=== PATIENT | female | born 1940 | race African-American/Black ===

== ENCOUNTER 2018-12-20 22:06 | Emergency (ER) | payer MEDICARE, OTHER ==
[~2018-12-20] VITALS: Ht 162.6 cm; Wt 70.3 kg
[2018-12-20] MEDS ORDERED: BENICAR HCT 201 EACH ORAL (22:18)
[2018-12-20] MEDS ORDERED: ATENOLOL25 MG ORAL (22:18)
--- NOTE | 2018-12-20 22:29 | Emergency Room Report ---
History of Present Illness General Chief Complaint: General Complaint Source: Patient Present Illness HPI This is a 78-year-old female with history of high blood pressure. She presents with chief complaint of dizziness. Onset tonight. She said that when she lay down thing seemed to be spinning. Richardson nauseous but no vomiting. That is sitting up. No diarrhea. Richardson gassy. Symptom in the past. Denies any chest pain or focal deficit. Denies any slurred speech. No other complaint. Allergies: Coded Allergies: No Known Allergies (Verified , 12/20/18) Uncoded Allergies: MOST FOODS, ONLY EATS SALMON,CORN,VEGETABLE (Allergy, Unknown, 06/21/11) Patient History Past Medical History: see triage record, old chart reviewed, HTN Past Surgical History: other Pertinent Family History: none Social History: Denies: smoking Now: No Immunizations: other Reviewed Nursing Documentation: PMH: Agreed; PSxH: Agreed Nursing Documentation-PMH Hx Hypertension: Yes Review of Systems Eye: Denies: eye pain, blurred vision ENT: Denies: ear pain, nose congestion, throat swelling Respiratory: Denies: cough, shortness of breath Cardiovascular: Denies: chest pain, palpitations Gastrointestinal: Denies: abdominal pain, diarrhea, nausea, vomiting Musculoskeletal: Denies: back pain, joint pain Skin: Denies: rash Neurological: Reports: dizziness; Denies: headache, numbness Endocrine: Denies: increased thirst, increased urine Hematologic/Lymphatic: Denies: easy bruising All Other Systems: negative except mentioned in HPI Physical Exam Vital Signs Date Time Temp Pulse Resp B/P (MAP) Pulse Ox O2 Delivery O2 Flow Rate FiO2 12/20/18 22:10 98.1 66 16 184/80 99 Room Air vitals with high blood pressure Sp02 EP Interpretation: reviewed, normal General Appearance: well appearing, no apparent distress, alert Head: normocephalic, atraumatic Eyes: bilateral eye PERRL, bilateral eye EOMI ENT: hearing grossly normal, normal pharynx Neck: full range of motion, supple, no meningismus Respiratory: chest non-tender, lungs clear, normal breath sounds Cardiovascular #1: regular rate, rhythm, systolic murmur Gastrointestinal: normal bowel sounds, non tender, no mass, no organomegaly, no bruit, non-distended Musculoskeletal: back normal, gait/station normal, normal range of motion Psychiatric: mood/affect normal Skin: warm/dry Medical Decision Making Diagnostic Impression: Primary Impression: Vertigo ER Course Patient with dizziness and vertigo symptoms. No evidence of any TIA or CVA or intracranial pathology. Better after Ativan. Will discharge home. Last Vital Signs Date Time Temp Pulse Resp B/P (MAP) Pulse Ox O2 Delivery O2 Flow Rate FiO2 12/20/18 22:10 98.1 66 16 184/80 99 Room Air Status: improved Disposition: HOME, SELF-CARE Condition: Stable Scripts Meclizine Hcl* (MECLIZINE*) 25 Mg Tablet 25 MG ORAL THREE TIMES A DAY, #30 TAB Prov: Jamal Guerra MD 12/20/18 Ondansetron (Zofran) 4 Mg Tablet 4 MG ORAL Q6H PRN for Nausea & Vomiting, #10 TAB 0 Refills Prov: Jamal Guerra MD 12/20/18 Additional Instructions: Follow-up with your Dr. in 2-3 days of not better. Return if symptom worsen. Jamal Guerra MD Dec 20, 2018 22:29
[2018-12-20 22:30] VITALS: BP 118/62
[2018-12-20] MEDS ORDERED: LORazepam Inj 2mg/ml 1ml IV ONE (22:30)
[2018-12-20 22:53] LABS: APPEARANCE,URINE CLEAR; BILIRUBIN, URINE NEGATIVE (NEGATIVE); GLUCOSE, URINE (UA) NEGATIVE (NEGATIVE); KETONES,URINE NEGATIVE (NEGATIVE); LEUKOCYTE ESTERASE ,URINE 1+ (NEGATIVE); NITRITE,URINE NEGATIVE (NEGATIVE); PH,URINE 6 (4.5-8.0); PROTEIN,URINE NEGATIVE (NEGATIVE); UROBILINOGEN,URINE NORMAL MG/DL (0.0-1.0)
[2018-12-20 22:57] LABS: EOSINOPHILS % (AUTO) 2.6 % (0.0-3.0); HEMATOCRIT 32.8 % (37.0-47.0); HEMOGLOBIN 10.8 G/DL (12.0-16.0); LYMPHOCYTES % (AUTO) 32.7 % (20.0-45.0); MEAN CORPUSCULAR VOLUME 98 FL (80-99); MONOCYTES % (AUTO) 8.3 % (1.0-10.0); NEUTROPHILS % (AUTO) 55.4 % (45.0-75.0); PLATELET COUNT 154 K/UL (150-450); RED BLOOD COUNT 3.33 M/UL (4.20-5.40); RED CELL DISTRIBUTION WIDTH 12.5 % (11.6-14.8); WHITE BLOOD COUNT 4.5 K/UL (4.8-10.8)
[2018-12-20 22:59] LABS: COLOR,URINE YELLOW
[2018-12-20 23:14] LABS: ANION GAP 8 mmol/L (5-15); BLOOD UREA NITROGEN 16 mg/dL (7-18); CALCIUM 9.6 MG/DL (8.5-10.1); CARBON DIOXIDE 29 MMOL/L (21-32); CHLORIDE 100 MMOL/L (98-107); CREATININE 0.8 MG/DL (0.55-1.30); POTASSIUM 3.7 MMOL/L (3.5-5.1); SODIUM 137 MMOL/L (136-145)
[2018-12-20] MEDS ORDERED: MECLIZINE HCL25 MG ORAL (23:23)
[2018-12-20] MEDS ORDERED: ZOFRAN4 MG ORAL (23:23)
[2018-12-20 23:27] VITALS: BP 113/43
== END 2018-12-20 23:50 | disposition home or self-care (01) ==
LOC: EMR 22:28
DX: R42 Dizziness and giddiness (principal); I10 Essential (primary) hypertension
CPT/HCPCS: 36415; 80048; 81001; 84484; 85025; 96361; 96374; 96375; 99284; J2405

== ENCOUNTER 2019-01-21 09:03 | Outpatient (CLI) | payer MEDICARE, OTHER ==
[~2019-01-21] VITALS: Ht 162.6 cm; Wt 68.0 kg
[~2019-01-21 09:03] MED LIST: ATENOLOL25 MG ORAL; BENICAR HCT 201 EACH ORAL; MECLIZINE HCL25 MG ORAL; ZOFRAN4 MG ORAL
[2019-01-21 12:03] VITALS: BP 130/70
--- NOTE | 2019-01-22 00:15 | Consultation ---
DATE OF CONSULTATION: 01/21/2019 NOTE: "POOR AUDIO QUALITY" GASTROENTEROLOGY CONSULTATION CONSULTING PHYSICIAN: Jesus Hercules M.D. CHIEF COMPLAINT: Abdominal pain and bloating. HISTORY OF PRESENT ILLNESS: This is a very pleasant 78-year-old female known to me from prior visits. We have not seen her for over five or six years. She has history of 4 colonic polyps. She was offered to have another colonoscopy 3 years after the last colonoscopy, which she never showed up and she refused. She is here today because she has complained of gas and bloating. Apparently, the bloating was severe enough for her to go to the emergency room early beginning of this month and she was sent home without any new medication. Denies any nausea, vomiting, dysphagia, or odynophagia. Denies any melena or hematochezia. As I mentioned, she had a workup in the past including blood test, which was negative at [facility]. Her last CT of the abdomen and pelvis was in 2011, which showed 3 subcentimeter hypo-attenuated lesion in the right and left lobe of the liver and mild wall thickening of gastric wall. Her endoscopy and colonoscopy was done in July 2011. She had antral gastritis, four colonic polyps, internal hemorrhoids, and sigmoid diverticulosis. PAST MEDICAL HISTORY: Significant for diverticulosis, internal hemorrhoids, H. 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 MEDICATIONS: Please see medication reconciliation list. ALLERGIES: No known drug allergies. SOCIAL HISTORY: The patient denies any tobacco, alcohol, or IV drug abuse. FAMILY HISTORY: No family history of GI malignancies. REVIEW OF SYSTEMS: A 10-point review of systems was performed and pertinent positives in HPI. PHYSICAL EXAMINATION: VITAL SIGNS: Temperature 99.2, pulse 69, respirations 20, and blood pressure 130/70. HEENT: Normocephalic and atraumatic. Sclerae anicteric. NECK: Supple. No evidence of lymphadenopathy. CARDIOVASCULAR: Regular rate and rhythm. Plus S1 and S2. No obvious murmur. LUNGS: Clear to auscultation bilaterally. ABDOMEN: Positive bowel sounds. Soft and nontender. No rebound. No guarding. No peritoneal sign. EXTREMITIES: No cyanosis, no clubbing, no edema. ASSESSMENT AND PLAN: This is a 78-year-old female with history of anemia, constipation, H. pylori-negative gastritis, and four colonic polyps in 2010. She was offered to have another colonoscopy. She absolutely refuses. I explained the risks that she is taking by not having another colonoscopy given history of polyps and increased risk of malignancy for colonoscopy. I informed her that if she is okay, she can have it, but she refuses at this time. The patient was given a prescription for VSL#3 to try for 3 weeks. Also, she was given a prescription for 3 times a day for 14 days. The patient was instructed to come back in the office in 3 weeks to see if her symptoms are better or not. If she is still having a lot of gas and bloating, we will consider adding Creon or Zantac for trial and we are going to reinforce and articulate again in the next visit for colonoscopy. Jesus Hercules M.D. DR: RULA JOB#: [id number] CC:
== END 2019-01-21 11:00 | disposition home or self-care (01) ==
LOC: PAN 09:03
DX: R10.9 Unspecified abdominal pain (principal); R14.0 Abdominal distension (gaseous); Z86.010 Personal history of colon polyps; K57.90 Diverticulosis of intestine, part unspecified, without perforation or abscess without bleeding; I10 Essential (primary) hypertension; K21.9 Gastro-esophageal reflux disease without esophagitis
CPT/HCPCS: 99212

== ENCOUNTER 2019-02-11 09:03 | Outpatient (CLI) | payer MEDICARE, OTHER ==
--- NOTE | 2019-02-11 09:48 | General Progress Note ---
Assessment/Plan Problem List: (1) Diverticulosis ICD Codes: K57.90 - Diverticulosis of intestine, part unspecified, without perforation or abscess without bleeding SNOMED: 419148953 (2) Hemorrhoids ICD Codes: K64.9 - Unspecified hemorrhoids SNOMED: 87736053 (3) SIBO (4) Colon polyp ICD Codes: K63.5 - Polyp of colon SNOMED: 86793539 Assessment/Plan: some response to Xifaxan on probiotics refuses Creon refuses repeat colonoscopy RTC 3 months Subjective ROS Limited/Unobtainable: Yes Allergies: Coded Allergies: No Known Allergies (Verified , 12/20/18) Uncoded Allergies: MOST FOODS, ONLY EATS SALMON,CORN,VEGETABLE (Allergy, Unknown, 06/21/11) Objective General Appearance: alert EENT: normal ENT inspection Neck: supple Cardiovascular: normal rate Respiratory/Chest: decreased breath sounds Abdomen: normal bowel sounds, non tender, soft Extremities: non-tender Jesus Hercules MD February 11, 2019 09:48
== END 2019-02-11 14:43 | disposition home or self-care (01) ==
LOC: PAN 09:03
DX: K57.90 Diverticulosis of intestine, part unspecified, without perforation or abscess without bleeding (principal); K64.9 Unspecified hemorrhoids; K56.609 Unspecified intestinal obstruction, unspecified as to partial versus complete obstruction; K63.5 Polyp of colon

== ENCOUNTER 2019-06-19 05:43 | Emergency (ER) | payer MEDICARE, OTHER ==
[~2019-06-19] VITALS: Ht 162.6 cm; Wt 68.0 kg
[2019-06-19 05:58] VITALS: BP 145/75
--- NOTE | 2019-06-19 05:58 | NUR ---
ED Nurse Note: Patient walked in to ER due to lower abdominal pain, vomiting and diarrhea since 11pm last night. Has hx of HTN and hyperacidity. Alert and oriented, verbally responsive. Breathing even and unlabored. No SOB. Able to walk with steady gait. Afebrile. VSS.
[2019-06-19] MEDS ORDERED: Metoclopramide 10mg/2ml Inj IVP ONE (06:15)
[2019-06-19] MEDS ORDERED: Mylanta II UD 30ml ORAL ONE (06:15)
[2019-06-19] MEDS ORDERED: Lidocaine 2% Visc 15ml soln ORAL ONE (06:15)
[2019-06-19] MEDS ORDERED: Dicyclomine HCl 10mg/5ml oral soln ORAL ONE (06:15)
[2019-06-19] MEDS ORDERED: Omnipaque-300 100ml vial INJ PRN (06:15)
--- NOTE | 2019-06-19 06:25 | Emergency Room Report ---
History of Present Illness General Chief Complaint: Abdominal Pain Source: Patient (Johan Sparrow MD) Present Illness HPI 78-year-old female history of gastritis presents with lower abdominal pain crampy in nature started at 11 PM, no aggravating relieving factors followed by 8 episodes of watery diarrhea, no blood, severity moderate, intermittent, patient denies any fevers chills, patient feels a little dehydrated and lightheaded, no chest pain or shortness of breath, no dyspnea on exertion patient presents for evaluation. (Johan Sparrow MD) Allergies: Coded Allergies: No Known Allergies (Verified , 12/20/18) Uncoded Allergies: MOST FOODS, ONLY EATS SALMON,CORN,VEGETABLE (Allergy, Unknown, 06/21/11) Patient History Past Medical History: see triage record Reviewed Nursing Documentation: PMH: Agreed; PSxH: Agreed (Johan Sparrow MD) Nursing Documentation-PMH Hx Cardiac Problems: Yes Hx Hypertension: Yes Hx Cancer: No Hx Gastrointestinal Problems: Yes Hx Neurological Problems: No (Johan Sparrow MD) Review of Systems All Other Systems: negative except mentioned in HPI (Johan Sparrow MD) Physical Exam Vital Signs Date Time Temp Pulse Resp B/P (MAP) Pulse Ox O2 Delivery O2 Flow Rate FiO2 06/19/19 05:52 97.5 80 16 145/75 (98) 96 Room Air Sp02 EP Interpretation: reviewed, normal General Appearance: well appearing, no apparent distress, alert Head: normocephalic, atraumatic Eyes: bilateral eye PERRL, bilateral eye EOMI ENT: uvula midline, moist mucus membranes Neck: supple, thyroid normal, supple/symm/no masses Respiratory: lungs clear, no respiratory distress, no retraction, no accessory muscle use Cardiovascular #1: normal peripheral pulses, regular rate, rhythm, no edema, no gallop, no murmur Gastrointestinal: non tender, soft, no guarding, no rebound Musculoskeletal: normal inspection Neurologic: alert, oriented x3 Psychiatric: mood/affect normal Skin: no rash, warm/dry (Johan Sparrow MD) Medical Decision Making Diagnostic Impression: Primary Impression: Acute diarrhea Additional Impression: Abdominal pain Qualified Codes: R10.30 - Lower abdominal pain, unspecified ER Course 88-year-old female presents with lower abdominal pain differential diagnosis includes gastritis, diverticulitis, appendicitis, infectious diarrhea Patient with benign exam, no rebound no guarding low suspicion for acute abdomen Will rehydrate patient, will provide symptomatic treatment will evaluate labs for dehydration and electrolyte abnormalities CT scan to evaluate for any acute intra-abdominal pathology (Johan Sparrow MD) ER Course CT of abdomen pelvis read by radiology showed mild fluid-filled distended small bowel loops with liquefied stool in the colon. Cystic densities in the liver. Heart is enlarged. Suspected enteritis. Laboratory testing showed normal white blood count as well as normal electrolyte panel. Patient appears stable for close outpatient follow up with primary care physician. She was advised to return for any worsening, bloody stools or other concerns. She was able to tolerate po fluids in the emergency department without vomiting. She was advised to follow up with her GI specialist Dr. Hercules. in 1-2 days. Labs Test 06/19/19 06:20 06/19/19 07:20 White Blood Count 6.1 K/UL (4.8-10.8) Red Blood Count 3.89 M/UL (4.20-5.40) Hemoglobin 12.7 G/DL (12.0-16.0) Hematocrit 39.4 % (37.0-47.0) Mean Corpuscular Volume 101 FL (80-99) Mean Corpuscular Hemoglobin 32.6 PG (27.0-31.0) Mean Corpuscular Hemoglobin Concent 32.2 G/DL (32.0-36.0) Red Cell Distribution Width 12.7 % (11.6-14.8) Platelet Count 158 K/UL (150-450) Mean Platelet Volume 7.8 FL (6.5-10.1) Neutrophils (%) (Auto) % (45.0-75.0) Lymphocytes (%) (Auto) % (20.0-45.0) Monocytes (%) (Auto) % (1.0-10.0) Eosinophils (%) (Auto) % (0.0-3.0) Basophils (%) (Auto) % (0.0-2.0) Differential Total Cells Counted 100 Neutrophils % (Manual) 84 % (45-75) Lymphocytes % (Manual) 7 % (20-45) Monocytes % (Manual) 4 % (1-10) Eosinophils % (Manual) 2 % (0-3) Basophils % (Manual) 3 % (0-2) Band Neutrophils 0 % (0-8) Platelet Estimate Adequate Platelet Morphology Normal Red Blood Cell Morphology Macrocytosis 1+ Prothrombin Time 10.4 SEC (9.30-11.50) Prothromb Time International Ratio 1.0 (0.9-1.1) Activated Partial Thromboplast Time 25 SEC (23-33) Urine Color Yellow Urine Appearance Clear Urine pH 5 (4.5-8.0) Urine Specific [place] 1.025 (1.005-1.035) Urine Protein Negative (NEGATIVE) Urine Glucose (UA) Negative (NEGATIVE) Urine Ketones 1+ (NEGATIVE) Urine Blood 1+ (NEGATIVE) Urine Nitrite Negative (NEGATIVE) Urine Bilirubin Negative (NEGATIVE) Urine Urobilinogen Normal MG/DL (0.0-1.0) Urine Leukocyte Esterase Negative (NEGATIVE) Urine RBC 0-2 /HPF (0 - 2) Urine WBC 0 /HPF (0 - 2) Urine Squamous Epithelial Cells Occasional /LPF Urine Amorphous Sediment Few /LPF (NONE) Urine Bacteria Few /HPF (NONE) Urine Mucus Moderate /LPF (NONE/OCC) Troponin I 0.000 ng/mL (0.000-0.056) Sodium Level 142 MMOL/L (136-145) Potassium Level 4.1 MMOL/L (3.5-5.1) Chloride Level 108 MMOL/L (98-107) Carbon Dioxide Level 26 MMOL/L (21-32) Anion Gap 8 mmol/L (5-15) Blood Urea Nitrogen 17 mg/dL (7-18) Creatinine 0.6 MG/DL (0.55-1.30) Estimat Glomerular Filtration Rate mL/min (>60) Glucose Level 127 MG/DL (74-106) Calcium Level 8.5 MG/DL (8.5-10.1) Total Bilirubin 0.6 MG/DL (0.2-1.0) Aspartate Amino Transf (AST/SGOT) 21 U/L (15-37) Alanine Aminotransferase (ALT/SGPT) 21 U/L (12-78) Alkaline Phosphatase 87 U/L (46-116) Total Protein 7.0 G/DL (6.4-8.2) Albumin 3.6 G/DL (3.4-5.0) Globulin 3.4 g/dL Albumin/Globulin Ratio 1.1 (1.0-2.7) Lipase 62 U/L (73-393) (Lenin Marie MD) EKG Diagnostic Results EKG Time: 06:08 EP Interpretation: NSR rate 69, QTc 422, no acute ST elevations, left axis dev (Johan Sparrow MD) Rhythm Strip Diag. Results Rhythm Strip Time: 06:22 EP Interpretation: yes Rate: 69 Rhythm: NSR, no PVC's, no ectopy (Johan Sparrow MD) Last Vital Signs Date Time Temp Pulse Resp B/P (MAP) Pulse Ox O2 Delivery O2 Flow Rate FiO2 06/19/19 05:58 98.2 78 18 145/75 99 Room Air (Johan Sparrow MD) Status: improved (Lenin Marie MD) Disposition: HOME, SELF-CARE Condition: Stable Scripts Ondansetron (Zofran) 4 Mg Tablet 4 MG ORAL Q6H PRN for Nausea & Vomiting, #30 TAB 0 Refills Prov: Lenin Marie MD 06/19/19 Referrals: Jesus Hercules MD (PCP) [facility] Patient Instructions: Abdominal Pain, Adult, Dehydration, Adult, [id number], Viral Gastroenteritis, Adult Additional Instructions: The patient was provided with discharge instructions, notified to follow-up with a primary care doctor and or specialist in the next 24-48 hours, and to return to the ED if they have worsening of their symptoms. Please note that this report is being documented using [employer] technology. This can lead to erroneous entry secondary to incorrect interpretation by the dictating instrument. Johan Sparrow MD Jun 19, 2019 06:25 Lenin Marie MD Jun 19, 2019 08:49
--- NOTE | 2019-06-19 06:28 | NUR ---
ED Nurse Note: IV line established. Blood and urine sent to lab.
[2019-06-19 06:44] LABS: HEMATOCRIT 39.4 % (37.0-47.0); HEMOGLOBIN 12.7 G/DL (12.0-16.0); MEAN CORPUSCULAR VOLUME 101 FL (80-99); PLATELET COUNT 158 K/UL (150-450); RED BLOOD COUNT 3.89 M/UL (4.20-5.40); RED CELL DISTRIBUTION WIDTH 12.7 % (11.6-14.8); WHITE BLOOD COUNT 6.1 K/UL (4.8-10.8)
[2019-06-19 06:48] LABS: APPEARANCE,URINE CLEAR; BILIRUBIN, URINE NEGATIVE (NEGATIVE); GLUCOSE, URINE (UA) NEGATIVE (NEGATIVE); KETONES,URINE 1+ (NEGATIVE); LEUKOCYTE ESTERASE ,URINE NEGATIVE (NEGATIVE); NITRITE,URINE NEGATIVE (NEGATIVE); PH,URINE 5 (4.5-8.0); PROTEIN,URINE NEGATIVE (NEGATIVE); UROBILINOGEN,URINE NORMAL MG/DL (0.0-1.0)
[2019-06-19 06:58] LABS: COLOR,URINE YELLOW
--- NOTE | 2019-06-19 07:11 | NUR ---
HAND-OFF: Report given to Michela ALVAREZ, endorsed plan of care. No further order at this time.
--- NOTE | 2019-06-19 07:12 | NUR ---
Nilda segura in EDM - 06/19/19 at 0726 by [facility] ED Nurse Note: received patient in bed
--- NOTE | 2019-06-19 07:12 | NUR ---
ED Nurse Note: Received patient in bed, patient is alert awake x4 resting comfortably in bed, on youth coordinator.
--- NOTE | 2019-06-19 07:23 | NUR ---
ED Nurse Note: additional green tops sent to lab.
[2019-06-19 07:31] VITALS: BP 141/71
[2019-06-19 07:52] LABS: ANION GAP 8 mmol/L (5-15); BLOOD UREA NITROGEN 17 mg/dL (7-18); CALCIUM 8.5 MG/DL (8.5-10.1); CARBON DIOXIDE 26 MMOL/L (21-32); CHLORIDE 108 MMOL/L (98-107); CREATININE 0.6 MG/DL (0.55-1.30); POTASSIUM 4.1 MMOL/L (3.5-5.1); SODIUM 142 MMOL/L (136-145)
[2019-06-19 07:56] LABS: ALANINE AMINOTRANSFERASE 21 U/L (12-78); ALBUMIN 3.6 G/DL (3.4-5.0); ALBUMIN/GLOBULIN RATIO 1.1 (1.0-2.7); ALKALINE PHOSPHATASE 87 U/L (46-116); ASPARTATE AMINO TRANSFERASE 21 U/L (15-37); BILIRUBIN,TOTAL 0.6 MG/DL (0.2-1.0)
--- NOTE | 2019-06-19 08:29 | Diagnostic Imaging Report ---
Indication: Abdominal pain Technique: Continuous helical transaxial imaging of the abdomen and pelvis was obtained from the lung bases to the pubic symphysis. No intravenous contrast was administered. Coronal 2-D reformats were also obtained. Automatic Exposure Control was utilized. Total Dose length Product (DLP): 1179.[address] Dose Index Volume (CTDIvol): 22.0 mGy Comparison: 10/10/2011 Findings: There is extensive mottling artifact due to low [id number] ratio and poor resolution. Mild fluid filled distended small bowel loops demonstrated. Liquefied stool in the colon demonstrated. No obvious free fluid identified. Findings may be due to enteritis. There is no obvious nephrolithiasis or renal stones. Noncontrast evaluation of solid organs is limited. There are hypodensities in the liver which may be cystic. Appendix is probably normal. There is narrowing of intervertebral discs and accompanying endplate osteophyte formation. Hypertrophied facet joints also demonstrated.. The heart is enlarged. The lung bases are grossly clear. IMPRESSION: Suspected enteritis. Correlate clinically. Additional incidental findings as above. Very limited evaluation due to technical factors resulting in poor image quality. The CT scanner at [facility] is accredited by the [employer] and the scans are performed using dose optimization techniques as appropriate to a performed exam including Automatic Exposure control.
[2019-06-19] MEDS ORDERED: ZOFRAN4 MG ORAL (09:23)
--- NOTE | 2019-06-19 09:41 | NUR ---
ER DISCHARGE NOTE: Patient is cleared to be discharged per ERMD DR KAMINSKI, pt is aox4, on room air, with stable vital signs. pt was given dc and prescription instructions, pt was able to verbalize understanding, pt id band and iv site removed without complications. pt is able to ambulate with steady gait. pt took all belongings.
[2019-06-19 09:42] VITALS: BP 141/71
--- NOTE | 2019-06-22 14:48 | Cardiology Report ---
APPROVED REPORT EKG Measurement Heart [id number] CO [id number] Normal sinus rhythm Moderate voltage criteria for LVH, may be normal variant Nonspecific ST and T wave abnormality Abnormal ECG
== END 2019-06-19 09:42 | disposition home or self-care (01) ==
LOC: EMR 06:04
DX: R10.30 Lower abdominal pain, unspecified (principal); R19.7 Diarrhea, unspecified; I10 Essential (primary) hypertension; Z91.018 Allergy to other foods
CPT/HCPCS: 36415; 74176; 80053; 81003; 83690; 84484; 85007; 85025; 85610; 85730; 93005; 96361; 96374; 96375; 99284; J2405; J2765; S0028